=== PATIENT | female | born 2005 | race African-American/Black ===

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

== ENCOUNTER 2023-09-12 03:10 | Inpatient (IN) ==
--- NOTE | 2023-09-12 03:44 | DR.EXTPAIN ---
HPI Time seen Time Seen by Provider: 09/12/23 03:43 PCP Primary Care Physician: Dr. Laureano Rodarte Complaint/Symptoms Chief Complaint:: Patient ambulatory in er with complaints of DKA. Patient complains of vomiting, dizziness, SOB, and weakness since 10pm last night. Patient states at 2am her glucose was 360. COVID-19 Coronavirus risk:travel/contact w/high risk person: No Has patient experienced Coronavirus symptoms: No Nurses notes reviewed Nurses Notes Review: Yes Source History Provided: Patient Mode of arrival Mode of Arrival: Ambulatory Timing Onset of Chief Complaint: 09/12/23 PMH PMH Past Medical History: Yes Past Medical History: Diabetes, Dyslipidemia and Hypertension Past Surgical History: No Family History History of Family Medical Conditions: Yes Family Medical History: Diabetes Mellitus and Hypertension Social History Does patient currently use any type of tobacco product: No Have you used tobacco products in the last 12 months: No Type of Tobacco Use: None Does any household member use tobacco: No Alcohol Use: None Do you use any recreational Drugs:: No Lives With: Significant Other Lives Where: Home Travel Risk Coronavirus risk:travel/contact w/high risk person: No Has patient experienced Coronavirus symptoms: No Infectious screening Have you traveled outside the country in the last 6 months?: No Isolation: Standard PE Vital Signs Vitals: Vital Signs Temperature 97.4 F Pulse Rate 128 Pulse Rate 135 Pulse Rate 130 Pulse Rate 129 Pulse Rate 131 Pulse Rate 131 Pulse Rate 135 Pulse Rate 129 Pulse Rate 127 Pulse Rate 129 Pulse Rate 120 Pulse Rate 130 Pulse Rate 146 Pulse Rate 138 Pulse Rate 142 Pulse Rate 136 Respiratory Rate 30 Respiratory Rate 30 Respiratory Rate 32 Respiratory Rate 24 Blood Pressure 140/70 Blood Pressure 140/70 Blood Pressure 135/71 Blood Pressure 134/68 Blood Pressure 131/68 Blood Pressure 131/68 Blood Pressure 129/69 Blood Pressure 135/83 Blood Pressure 120/60 Blood Pressure 139/81 Blood Pressure 139/81 Blood Pressure 148/83 Blood Pressure 132/70 O2 Sat by Pulse Oximetry 100 O2 Sat by Pulse Oximetry 100 O2 Sat by Pulse Oximetry 100 O2 Sat by Pulse Oximetry 100 O2 Sat by Pulse Oximetry 100 O2 Sat by Pulse Oximetry 100 O2 Sat by Pulse Oximetry 100 O2 Sat by Pulse Oximetry 100 O2 Sat by Pulse Oximetry 99 O2 Sat by Pulse Oximetry 100 O2 Sat by Pulse Oximetry 100 O2 Sat by Pulse Oximetry 99 O2 Sat by Pulse Oximetry 99 O2 Sat by Pulse Oximetry 98 O2 Sat by Pulse Oximetry 98 O2 Sat by Pulse Oximetry 95 ROR Labs Reviewed 09/12/23 04:20 09/12/23 06:17 Laboratory: WBC 28.7 X10^3/uL (3.6-10.0) H 09/12/23 04:20 RBC 5.91 X10^6/uL (3.5-5.4) H 09/12/23 04:20 Hgb 16.2 g/dL (12.0-16.0) H 09/12/23 04:20 Hct 51.5 % (36.0-47.0) H 09/12/23 04:20 MCV 87.1 fL (80.0-100.0) 09/12/23 04:20 MCH 27.5 pg (27.0-34.0) 09/12/23 04:20 MCHC 31.5 g/dL (33.0-35.0) L 09/12/23 04:20 RDW 14.3 % (11.6-16.5) 09/12/23 04:20 Plt Count 484 X10^3/uL (150.0-450.0) H 09/12/23 04:20 Plt Count Comment Increased (ADEQUATE) A 09/12/23 04:20 MPV 9.0 fL (7.4-11.0) 09/12/23 04:20 Neut % (Auto) 88.3 % (42.0-75.0) H 09/12/23 04:20 Lymph % (Auto) 5.7 % (21.0-51.0) L 09/12/23 04:20 [place] % (Auto) 5.2 % (0.0-13.0) 09/12/23 04:20 Eos % (Auto) 0.0 % (0.9-2.9) L 09/12/23 04:20 Baso % (Auto) 0.8 % (0.2-1.0) 09/12/23 04:20 Neut # (Auto) 25.3 x10^3/uL (2.2-4.8) H 09/12/23 04:20 Lymph # (Auto) 1.6 X10^3/uL (1.3-2.9) 09/12/23 04:20 [place] # (Auto) 1.5 x10^3/uL (0.3-0.8) H 09/12/23 04:20 Eos # (Auto) 0.0 x10^3/uL (0.0-0.2) 09/12/23 04:20 Baso # (Auto) 0.2 X10^3/uL (0.0-0.1) H 09/12/23 04:20 Absolute Nucleated RBC 0.0 /100WBC 09/12/23 04:20 Total Counted 100 09/12/23 04:20 Neutrophils % (Manual) 79 % (39-76) H 09/12/23 04:20 Band Neutrophils % 5 % (0-10) 09/12/23 04:20 Lymphocytes % (Manual) 9 % (13-43) L 09/12/23 04:20 Monocytes % (Manual) 5 % (4-9) 09/12/23 04:20 Metamyelocytes % 2 09/12/23 04:20 Plt Morphology Comment Normal (NORMAL) 09/12/23 04:20 RBC Morphology Normal (NORMAL) 09/12/23 04:20 Sample Site Rrad 09/12/23 07:11 ABG pH 6.960 (7.35-7.45) L* 09/12/23 07:11 ABG pCO2 8.0 mmHg (35.0-45.0) L* 09/12/23 07:11 ABG pO2 127.0 mmHg (80.0-100.0) H 09/12/23 07:11 ABG HCO3 < 3.0 mmol/L (22-26) L* 09/12/23 07:11 ABG O2 Saturation Not Reportable 09/12/23 07:11 ABG Base Excess Not Reportable 09/12/23 07:11 Salas Test Pos 09/12/23 07:11 A-a Gradient 13.0 mmHg 09/12/23 07:11 FiO2 21.0 09/12/23 07:11 Blood Gas Comments Pt nasim well elj cdn 09/12/23 07:11 Sodium 142 mmol/L (136-145) 09/12/23 06:17 Corrected Sodium 150 mmol/L (136-145) H 09/12/23 06:17 Potassium 4.9 mmol/L (3.5-5.1) 09/12/23 06:17 Chloride 104 mmol/L (98-107) 09/12/23 06:17 Carbon Dioxide 6.7 mmol/L (21-32) L* 09/12/23 06:17 BUN 16 mg/dL (7-18) 09/12/23 06:17 Creatinine 1.29 mg/dL (0.55-1.02) H 09/12/23 06:17 Est GFR (MDRD) Af Amer > 60 (>60) 09/12/23 06:17 Est GFR (MDRD) Non-Af 56 (>60) L 09/12/23 06:17 Glucose 451 mg/dL (65-99) H 09/12/23 06:17 Calcium 8.8 mg/dL (8.5-10.1) 09/12/23 06:17 Corrected Calcium TNP 09/12/23 04:20 Magnesium 2.3 mg/dL (2.0-2.9) 09/12/23 04:20 Total Bilirubin 0.50 mg/dL (0.2-1.0) 09/12/23 04:20 AST < 6 Units/L (15-37) L 09/12/23 04:20 ALT 27 Units/L (12-78) 09/12/23 04:20 Alkaline Phosphatase 186 Units/L (46-116) H 09/12/23 04:20 Total Protein 9.9 g/dL (6.4-8.2) H 09/12/23 04:20 Albumin 4.4 g/dL (3.4-5.0) 09/12/23 04:20 Globulin 5.5 g/dL (2.5-4.5) H 09/12/23 04:20 Albumin/Globulin Ratio 0.8 Ratio (1.1-2.1) L 09/12/23 04:20 Specimen Type Clean catch urine 09/12/23 03:48 Urine Color Pale yellow (YELLOW) 09/12/23 03:48 Urine Appearance Clear (CLEAR) 09/12/23 03:48 Urine pH 5.0 (5.0 - 8.0) 09/12/23 03:48 Ur Specific [employer] [place] 1.025 (1.000-1.030) 09/12/23 03:48 Urine Protein 3+ (NEGATIVE) 09/12/23 03:48 Urine Glucose (UA) 4+ (NEGATIVE) 09/12/23 03:48 Urine Ketones 4+ (NEGATIVE) 09/12/23 03:48 Urine Blood 4+ (NEGATIVE) 09/12/23 03:48 Urine Nitrite Negative (NEGATIVE) 09/12/23 03:48 Urine Bilirubin Negative (NEGATIVE) 09/12/23 03:48 Urine Urobilinogen Normal (NORMAL) 09/12/23 03:48 Ur Leukocyte Esterase Negative (NEGATIVE) 09/12/23 03:48 Urine RBC 0-2 /HPF (0-3) 09/12/23 03:48 Urine WBC 0-2 /HPF (0-5) 09/12/23 03:48 Ur Squamous Epith Cells Few /HPF (NEGATIVE) 09/12/23 03:48 Urine Bacteria Trace /HPF (NEGATIVE) 09/12/23 03:48 Hyaline Casts Few /LPF (NEGATIVE) 09/12/23 03:48 Urine Mucus Few /HPF (NEGATIVE) 09/12/23 03:48 Urine Yeast Few /HPF (NEGATIVE) 09/12/23 03:48 Ur Culture Indicated? No/not indicated 09/12/23 03:48 Acetone, Semi-Quant Moderate (NEGATIVE) H 09/12/23 04:20 Opioid Opioid Risk Tool Age (Jason box if 16-45): Yes History of Preadolescent Sexual Abuse: No Total: 1 Total Score Risk Category: Low Risk Copyright: Antoni HAGAN predicting aberrant behaviors Discharge Plan Discharge Plan Patient Disposition: 01 HOME, SELF-CARE Condition: Stable Prescriptions: No Action lisinopril 10 MG tablet 1 tab PO DAILY insulin lispro [Humalog U-100 Insulin] 100 UNITS/ML solution 10 unit SC PRN PRN Misc Home Med [Patient's Home Medication] 1 EA Ea Patient Comments: BASAGRAL INSULIN ibuprofen 600 MG tablet 600 mg PO TID PRN (Reason: Pain/Inflammation) Qty: 20 0RF naproxen [Naprosyn] 500 mg tablet 500 mg PO BID Qty: 14 0RF insulin glargine [Lantus U-100 Insulin] 100 unit/mL Solution 45 unit SUBCUT HS Health Concerns: Post Hospitalization: new medications and changes needed to prevent readmission or further decline. Pt educated and given instructions on all concerns. Plan of Treatment: Continue with present treatment and follow up plan. Pt is to keep follow up appointment as instructed and take medications as ordered. Orders to Discharge Patient Discharge Orders: Transfer (Routine); Ordered 09/12/23 Ordered By: ISAIAS ANTHONY Follow ups/Referrals Follow ups/Referrals: NFD,None [Primary Care Provider] - 3 days Instructions Stand Alone Forms: Post Hospital Follow Up Care
[2023-09-12 04:10] LABS: BILIRUBIN,URINE NEGATIVE (NEGATIVE); BLOOD/HEMOGLOBIN,URINE 4+ (NEGATIVE); GLUCOSE, URINE 4+ (NEGATIVE); KETONES,URINE 4+ (NEGATIVE); LEUKOCYTE ESTERASE ,URINE NEGATIVE (NEGATIVE); NITRITES,URINE NEGATIVE (NEGATIVE); PROTEIN,URINE 3+ (NEGATIVE); UROBILINOGEN,URINE NORMAL (NORMAL)
[2023-09-12 04:14] LABS: ABG HCO3 < 3.0 mmol/L (22-26)
[2023-09-12 04:19] LABS: APPEARANCE,URINE CLEAR (CLEAR); COLOR,URINE PALE YELLOW (YELLOW)
[2023-09-12 04:20] LABS: BACTERIA,URINE TRACE /HPF (NEGATIVE); HYALINE CASTS, URINE FEW /LPF (NEGATIVE); RBC,URINE 0-2 /HPF (0-3); SQUAMOUS EPITHELIAL CELL,UR FEW /HPF (NEGATIVE); YEAST,URINE FEW /HPF (NEGATIVE)
[2023-09-12] MEDS: NS 1,000 ML IV 1,000 ML IV ONE ×4 (04:25→13:49)
[2023-09-12 04:27] LABS: BASOPHILS # (AUTO) 0.2 X10^3/uL (0.0-0.1); BASOPHILS % (AUTO) 0.8 % (0.2-1.0); HEMATOCRIT 51.5 % (36.0-47.0); HEMOGLOBIN 16.2 g/dL (12.0-16.0); LYMPHOCYTES # (AUTO) 1.6 X10^3/uL (1.3-2.9); LYMPHOCYTES % (AUTO) 5.7 % (21.0-51.0); MEAN CORPUSCULAR HEMOGLOBIN 27.5 pg (27.0-34.0); MEAN CORPUSCULAR HGB CONC 31.5 g/dL (33.0-35.0); MEAN CORPUSCULAR VOLUME 87.1 fL (80.0-100.0); MONOCYTES # (AUTO) 1.5 x10^3/uL (0.3-0.8); MONOCYTES % (AUTO) 5.2 % (0.0-13.0); NEUTROPHILS # (AUTO) 25.3 x10^3/uL (2.2-4.8); NEUTROPHILS % (AUTO) 88.3 % (42.0-75.0); PLATELET COUNT 484 X10^3/uL (150.0-450.0); RED BLOOD COUNT 5.91 X10^6/uL (3.5-5.4); RED CELL DISTRIBUTION WIDTH 14.3 % (11.6-16.5); WHITE BLOOD COUNT 28.7 X10^3/uL (3.6-10.0)
[2023-09-12 04:35] LABS: SERUM ACETONE MODERATE (NEGATIVE)
[2023-09-12] MEDS: ZOFRAN INJ 4 MG VIAL IVP ONE (04:37)
[2023-09-12 04:38] LABS: ALANINE AMINOTRANSFERASE 27 Units/L (12-78); ALBUMIN 4.4 g/dL (3.4-5.0); ALKALINE PHOSPHATASE 186 Units/L (46-116); ASPARTATE AMINO TRANSFERASE < 6 Units/L (15-37); BLOOD UREA NITROGEN 15 mg/dL (7-18); CALCIUM 9.7 mg/dL (8.5-10.1); CHLORIDE 98 mmol/L (98-107); COR NA(FOR HYPERGLY) 146 mmol/L (136-145); CREATININE 1.66 mg/dL (0.55-1.02); GLUCOSE 488 mg/dL (65-99); POTASSIUM 4.7 mmol/L (3.5-5.1); SODIUM 137 mmol/L (136-145); TOTAL PROTEIN 9.9 g/dL (6.4-8.2); eGFR NON BLACK RACES 42 (>60)
[2023-09-12] MEDS: DEMEROL INJ IVP ONE (04:39)
[2023-09-12] MEDS: SODIUM BICARBONATE 8.4% INJ ADULT IVP ONE ×4 (04:39→08:02)
[2023-09-12 04:44] LABS: BAND NEUTROPHILS % 5 % (0-10); METAMYELOCYTES % 2; PLATELET MORPHOLOGY COMMENT NORMAL (NORMAL)
[2023-09-12 04:46] LABS: CARBON DIOXIDE < 5.0 mmol/L (21-32)
[2023-09-12 06:33] LABS: BLOOD UREA NITROGEN 16 mg/dL (7-18); CALCIUM 8.8 mg/dL (8.5-10.1); CHLORIDE 104 mmol/L (98-107); COR NA(FOR HYPERGLY) 150 mmol/L (136-145); CREATININE 1.29 mg/dL (0.55-1.02); GLUCOSE 451 mg/dL (65-99); POTASSIUM 4.9 mmol/L (3.5-5.1); SODIUM 142 mmol/L (136-145); eGFR NON BLACK RACES 56 (>60)
[2023-09-12 06:36] LABS: CARBON DIOXIDE 6.7 mmol/L (21-32)
--- NOTE | 2023-09-12 06:41 | RAD ---
EXAM:CHEST, 1 VIEWHISTORY:Shortness of breathCOMPARISON:07/25/2020FINDINGS:The trachea is midline. The cardiac silhouette is unremarkable . The lungs are clear without focal infiltrate or effusion. The bony thorax is unremarkable.IMPRESSION:No acute cardiopulmonary disease.THIS IS AN ELECTRONICALLY VERIFIED FINAL REPORT09/12/2023 6:38 AM - Electronically signed by Km Pickett MD
[2023-09-12 07:16] LABS: ABG HCO3 < 3.0 mmol/L (22-26)
[2023-09-12 07:17] LABS: ABG ALLEN TEST POS
[2023-09-12] MEDS: NS 1,000 ML IV 1,000 ML with MAGNESIUM SULFATE 50% INJ VIAL 1 G, MVI INJ (ADULT) 10 ML IV SCH (07:36)
[2023-09-12] MEDS ORDERED: SODIUM BICARBONATE 8.4% INJ ADULT 100 ML in NS 1/2 1,000 ML IV 1,000 ML IV ONE (07:41)
[2023-09-12] MEDS: SODIUM BICARBONATE 8.4% INJ ADULT 100 ML in NS 1/2 1,000 ML IV 1,000 ML IV ONE (07:52)
[2023-09-12] MEDS: MYXREDLIN 100 UNIT/100 ML BAG 100 UNIT/100 ML PLAST..BAG IV PRN (08:09)
--- NOTE | 2023-09-12 08:30 | DR.H&P ---
H&P History & Physical for Day of: H&P Date: 09/12/23 Chief Complaint Chief Complaint: "DKA", ELEVATED BLOOD SUGAR Allergies Allergies Allergy/AdvReac Type Severity Reaction Status Date / Time No Known Drug Allergies Allergy Verified 09/12/23 03:23 History of Present Illness History of Present Illness: PT IS 18BF, ER ADMISSION AFTER PRESENTING WITH CO BEING IN DKA. 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 PT REPORTS LAST SEEING PCP IN JANUARY. PT DENIES ANY RECENT S/S VIRAL ILLNESS. PT REPORTS LMP 2 WEEKS AGO. PT ADMITTED FOR TREATMENT OF DKA Past Medical History Past Medical History: Diabetes, Dyslipidemia and Hypertension Family History Family Medical History: Diabetes Mellitus and Hypertension Social History Does patient currently use any type of tobacco product: No Have you used tobacco products in the last 12 months: No Type of Tobacco Use: None Does any household member use tobacco: No Alcohol Use: None Medications Home Medications: Home Medications Medication Instructions Recorded Confirmed Type Misc Home Med [Patient's Home 01/05/17 History Medication] insulin lispro 100 unit/mL 10 unit SC PRN PRN 01/05/17 09/12/23 History subcutaneous solution (Humalog U-100 Insulin) lisinopril 10 mg tablet 1 tab PO DAILY 01/05/17 01/05/17 History insulin glargine 100 unit/mL 45 unit subcut HS 09/12/23 09/12/23 History subcutaneous solution (Lantus U-100 Insulin) Labs 09/12/23 04:20 09/12/23 06:17 Labs: Laboratory WBC 28.7 X10^3/uL (3.6-10.0) H 09/12/23 04:20 RBC 5.91 X10^6/uL (3.5-5.4) H 09/12/23 04:20 Hgb 16.2 g/dL (12.0-16.0) H 09/12/23 04:20 Hct 51.5 % (36.0-47.0) H 09/12/23 04:20 MCV 87.1 fL (80.0-100.0) 09/12/23 04:20 MCH 27.5 pg (27.0-34.0) 09/12/23 04:20 MCHC 31.5 g/dL (33.0-35.0) L 09/12/23 04:20 RDW 14.3 % (11.6-16.5) 09/12/23 04:20 Plt Count 484 X10^3/uL (150.0-450.0) H 09/12/23 04:20 Plt Count Comment Increased (ADEQUATE) A 09/12/23 04:20 MPV 9.0 fL (7.4-11.0) 09/12/23 04:20 Neut % (Auto) 88.3 % (42.0-75.0) H 09/12/23 04:20 Lymph % (Auto) 5.7 % (21.0-51.0) L 09/12/23 04:20 [place] % (Auto) 5.2 % (0.0-13.0) 09/12/23 04:20 Eos % (Auto) 0.0 % (0.9-2.9) L 09/12/23 04:20 Baso % (Auto) 0.8 % (0.2-1.0) 09/12/23 04:20 Neut # (Auto) 25.3 x10^3/uL (2.2-4.8) H 09/12/23 04:20 Lymph # (Auto) 1.6 X10^3/uL (1.3-2.9) 09/12/23 04:20 [place] # (Auto) 1.5 x10^3/uL (0.3-0.8) H 09/12/23 04:20 Eos # (Auto) 0.0 x10^3/uL (0.0-0.2) 09/12/23 04:20 Baso # (Auto) 0.2 X10^3/uL (0.0-0.1) H 09/12/23 04:20 Absolute Nucleated RBC 0.0 /100WBC 09/12/23 04:20 Total Counted 100 09/12/23 04:20 Neutrophils % (Manual) 79 % (39-76) H 09/12/23 04:20 Band Neutrophils % 5 % (0-10) 09/12/23 04:20 Lymphocytes % (Manual) 9 % (13-43) L 09/12/23 04:20 Monocytes % (Manual) 5 % (4-9) 09/12/23 04:20 Metamyelocytes % 2 09/12/23 04:20 Plt Morphology Comment Normal (NORMAL) 09/12/23 04:20 RBC Morphology Normal (NORMAL) 09/12/23 04:20 Sample Site Rrad 09/12/23 07:11 ABG pH 6.960 (7.35-7.45) L* 09/12/23 07:11 ABG pCO2 8.0 mmHg (35.0-45.0) L* 09/12/23 07:11 ABG pO2 127.0 mmHg (80.0-100.0) H 09/12/23 07:11 ABG HCO3 < 3.0 mmol/L (22-26) L* 09/12/23 07:11 ABG O2 Saturation Not Reportable 09/12/23 07:11 ABG Base Excess Not Reportable 09/12/23 07:11 Salas Test Pos 09/12/23 07:11 A-a Gradient 13.0 mmHg 09/12/23 07:11 FiO2 21.0 09/12/23 07:11 Blood Gas Comments Pt nasim well elj cdn 09/12/23 07:11 Sodium 142 mmol/L (136-145) 09/12/23 06:17 Corrected Sodium 150 mmol/L (136-145) H 09/12/23 06:17 Potassium 4.9 mmol/L (3.5-5.1) 09/12/23 06:17 Chloride 104 mmol/L (98-107) 09/12/23 06:17 Carbon Dioxide 6.7 mmol/L (21-32) L* 09/12/23 06:17 BUN 16 mg/dL (7-18) 09/12/23 06:17 Creatinine 1.29 mg/dL (0.55-1.02) H 09/12/23 06:17 Est GFR (MDRD) Af Amer > 60 (>60) 09/12/23 06:17 Est GFR (MDRD) Non-Af 56 (>60) L 09/12/23 06:17 Glucose 451 mg/dL (65-99) H 09/12/23 06:17 POC Glucose (mg/dL) 411 mg/dL (65-99) H 09/12/23 08:01 Calcium 8.8 mg/dL (8.5-10.1) 09/12/23 06:17 Corrected Calcium TNP 09/12/23 04:20 Magnesium 2.3 mg/dL (2.0-2.9) 09/12/23 04:20 Total Bilirubin 0.50 mg/dL (0.2-1.0) 09/12/23 04:20 AST < 6 Units/L (15-37) L 09/12/23 04:20 ALT 27 Units/L (12-78) 09/12/23 04:20 Alkaline Phosphatase 186 Units/L (46-116) H 09/12/23 04:20 Total Protein 9.9 g/dL (6.4-8.2) H 09/12/23 04:20 Albumin 4.4 g/dL (3.4-5.0) 09/12/23 04:20 Globulin 5.5 g/dL (2.5-4.5) H 09/12/23 04:20 Albumin/Globulin Ratio 0.8 Ratio (1.1-2.1) L 09/12/23 04:20 Specimen Type Clean catch urine 09/12/23 03:48 Urine Color Pale yellow (YELLOW) 09/12/23 03:48 Urine Appearance Clear (CLEAR) 09/12/23 03:48 Urine pH 5.0 (5.0 - 8.0) 09/12/23 03:48 Ur Specific [place] 1.025 (1.000-1.030) 09/12/23 03:48 Urine Protein 3+ (NEGATIVE) 09/12/23 03:48 Urine Glucose (UA) 4+ (NEGATIVE) 09/12/23 03:48 Urine Ketones 4+ (NEGATIVE) 09/12/23 03:48 Urine Blood 4+ (NEGATIVE) 09/12/23 03:48 Urine Nitrite Negative (NEGATIVE) 09/12/23 03:48 Urine Bilirubin Negative (NEGATIVE) 09/12/23 03:48 Urine Urobilinogen Normal (NORMAL) 09/12/23 03:48 Ur Leukocyte Esterase Negative (NEGATIVE) 09/12/23 03:48 Urine RBC 0-2 /HPF (0-3) 09/12/23 03:48 Urine WBC 0-2 /HPF (0-5) 09/12/23 03:48 Ur Squamous Epith Cells Few /HPF (NEGATIVE) 09/12/23 03:48 Urine Bacteria Trace /HPF (NEGATIVE) 09/12/23 03:48 Hyaline Casts Few /LPF (NEGATIVE) 09/12/23 03:48 Urine Mucus Few /HPF (NEGATIVE) 09/12/23 03:48 Urine Yeast Few /HPF (NEGATIVE) 09/12/23 03:48 Ur Culture Indicated? No/not indicated 09/12/23 03:48 Acetone, Semi-Quant Moderate (NEGATIVE) H 09/12/23 04:20 Review of Systems Constitutional: Malaise Eyes: No Symptoms Reported ENT: No Symptoms Reported Respiratory: Shortness of Breath Cardiovascular: Palpitations Gastrointestinal: Nausea Genitourinary: No Symptoms Reported Musculoskeletal: No Symptoms Reported Skin: No Symptoms Reported Neurological: Weakness Physical Exam Vital Signs: Vital Signs Temperature 97.4 F Pulse Rate 128 Pulse Rate 135 Pulse Rate 130 Pulse Rate 129 Pulse Rate 131 Pulse Rate 131 Pulse Rate 135 Pulse Rate 129 Pulse Rate 127 Pulse Rate 129 Pulse Rate 120 Pulse Rate 130 Pulse Rate 146 Pulse Rate 138 Pulse Rate 142 Pulse Rate 136 Respiratory Rate 30 Respiratory Rate 30 Respiratory Rate 32 Respiratory Rate 24 Blood Pressure 140/70 Blood Pressure 140/70 Blood Pressure 135/71 Blood Pressure 134/68 Blood Pressure 131/68 Blood Pressure 131/68 Blood Pressure 129/69 Blood Pressure 135/83 Blood Pressure 120/60 Blood Pressure 139/81 Blood Pressure 139/81 Blood Pressure 148/83 Blood Pressure 132/70 O2 Sat by Pulse Oximetry 100 O2 Sat by Pulse Oximetry 100 O2 Sat by Pulse Oximetry 100 O2 Sat by Pulse Oximetry 100 O2 Sat by Pulse Oximetry 100 O2 Sat by Pulse Oximetry 100 O2 Sat by Pulse Oximetry 100 O2 Sat by Pulse Oximetry 100 O2 Sat by Pulse Oximetry 99 O2 Sat by Pulse Oximetry 100 O2 Sat by Pulse Oximetry 100 O2 Sat by Pulse Oximetry 99 O2 Sat by Pulse Oximetry 99 O2 Sat by Pulse Oximetry 98 O2 Sat by Pulse Oximetry 98 O2 Sat by Pulse Oximetry 95 Oriented: Normal Eyes: Normal Ear: Normal Nose: Normal Throat: Normal Respiratory: RLL Diminished and LLL Diminished Cardiovascular: Tachycardia Auscultation: Bowel Sounds: Normal Palpation: Normal Tenderness: Normal Skin: Decreased Turgur and Diaphoresis (MILD) Musculoskeletal: Normal Psychiatric: Anxiety Affect: Anxious Speech Pattern: Clear and Appropriate Assessment/Plan (1) DKA (diabetic ketoacidosis): Narrative Support Text: ADMIT, ICU AGGRESSIVE IV HYDRATION WITH I&OS, BS CONTROL AND INSULIN DRIP PER PROTOCL PRN SUPPLEMENTAL O2 BP AND CARDIAC MONITORING NPO, BMP Q 4 UNTIL CO2 >18 DAILY SERUM ACETONE, ABG ON ADMISSION Status: Acute
[2023-09-12 09:14] LABS: BLOOD UREA NITROGEN 15 mg/dL (7-18); CALCIUM 8.7 mg/dL (8.5-10.1); CHLORIDE 103 mmol/L (98-107); COR NA(FOR HYPERGLY) 148 mmol/L (136-145); CREATININE 1.23 mg/dL (0.55-1.02); GLUCOSE 396 mg/dL (65-99); POTASSIUM 4.3 mmol/L (3.5-5.1); SODIUM 141 mmol/L (136-145); eGFR NON BLACK RACES 59 (>60)
[2023-09-12 09:16] LABS: CARBON DIOXIDE 5.1 mmol/L (21-32)
[2023-09-12] MEDS ORDERED: MYXREDLIN 100 UNIT/100 ML BAG 100 UNIT/100 ML PLAST..BAG IV PRN (09:42)
[2023-09-12] MEDS: NS 1,000 ML IV 1,000 ML ONE ×2 (09:46→09:47)
[2023-09-12] MEDS: D5 NS 1,000 ML IV 1,000 ML IV SCH ×2 (10:27→15:22)
[2023-09-12] MEDS: ROCEPHIN VIAL 1 GRAM 1 G in NS 100 ML IV 100 ML IV SCH (10:29)
[2023-09-12 11:01] VITALS: BMI 24.3
[2023-09-12 13:17] LABS: BLOOD UREA NITROGEN 12 mg/dL (7-18); CALCIUM 8.6 mg/dL (8.5-10.1); CHLORIDE 103 mmol/L (98-107); COR NA(FOR HYPERGLY) 144 mmol/L (136-145); CREATININE 1.25 mg/dL (0.55-1.02); GLUCOSE 276 mg/dL (65-99); POTASSIUM 4.1 mmol/L (3.5-5.1); SODIUM 140 mmol/L (136-145); eGFR NON BLACK RACES 58 (>60)
[2023-09-12 13:35] LABS: CARBON DIOXIDE < 5.0 mmol/L (21-32)
[2023-09-12] MEDS ORDERED: NS 1,000 ML IV 1,000 ML ONE (13:37)
[2023-09-12] MEDS: NS 1,000 ML IV 1,000 ML IV SCH (14:47)
[2023-09-12] MEDS ORDERED: NORCO 5/325 MG TAB ONE (15:15)
--- NOTE | 2023-09-12 15:27 | PCM.PROG ---
Progress Note - Past Medical Family Social History Allergies: Allergies No Known Drug Allergies Allergy (Verified 09/12/23 03:23) - Vital Signs and I&O's Vital Signs: Vital Signs Temperature 98.3 F Temperature 98.4 F Pulse Rate 133 Pulse Rate 128 Pulse Rate 127 Pulse Rate 138 Pulse Rate 133 Pulse Rate 128 Pulse Rate 126 Pulse Rate 126 Pulse Rate 123 Pulse Rate 128 Pulse Rate 128 Respiratory Rate 32 Respiratory Rate 34 Respiratory Rate 25 Respiratory Rate 21 Respiratory Rate 22 Blood Pressure 129/61 Blood Pressure 134/68 Blood Pressure 114/73 Blood Pressure 137/71 Blood Pressure 138/78 Blood Pressure 139/70 O2 Sat by Pulse Oximetry 100 O2 Sat by Pulse Oximetry 100 O2 Sat by Pulse Oximetry 100 O2 Sat by Pulse Oximetry 100 O2 Sat by Pulse Oximetry 100 O2 Sat by Pulse Oximetry 100 O2 Sat by Pulse Oximetry 100 O2 Sat by Pulse Oximetry 100 O2 Sat by Pulse Oximetry 100 O2 Sat by Pulse Oximetry 100 O2 Sat by Pulse Oximetry 100 Intake and Output: Intake & Output 09/09/23 09/10/23 09/11/23 09/12/23 23:59 23:59 23:59 23:59 Intake Total 26.9 / 26.9 Balance 26.9 / 26.9 - Physical Exam Oriented: Normal Eyes: Normal Ear: Normal Nose: Normal Throat: Normal Cardiovascular: Tachycardia Auscultation: Bowel Sounds: Normal Tenderness: Normal Skin: Decreased [place], Diaphoresis (MILD) Musculoskeletal: Normal Psychiatric: Anxiety Affect: Anxious Speech Pattern: Clear, Appropriate - Laboratory and Diagnostics Result Diagrams: 09/12/23 04:20 09/12/23 13:03 Labs: Laboratory WBC 28.7 X10^3/uL (3.6-10.0) H 09/12/23 04:20 RBC 5.91 X10^6/uL (3.5-5.4) H 09/12/23 04:20 Hgb 16.2 g/dL (12.0-16.0) H 09/12/23 04:20 Hct 51.5 % (36.0-47.0) H 09/12/23 04:20 MCV 87.1 fL (80.0-100.0) 09/12/23 04:20 MCH 27.5 pg (27.0-34.0) 09/12/23 04:20 MCHC 31.5 g/dL (33.0-35.0) L 09/12/23 04:20 RDW 14.3 % (11.6-16.5) 09/12/23 04:20 Plt Count 484 X10^3/uL (150.0-450.0) H 09/12/23 04:20 Plt Count Comment Increased (ADEQUATE) A 09/12/23 04:20 MPV 9.0 fL (7.4-11.0) 09/12/23 04:20 Neut % (Auto) 88.3 % (42.0-75.0) H 09/12/23 04:20 Lymph % (Auto) 5.7 % (21.0-51.0) L 09/12/23 04:20 [place] % (Auto) 5.2 % (0.0-13.0) 09/12/23 04:20 Eos % (Auto) 0.0 % (0.9-2.9) L 09/12/23 04:20 Baso % (Auto) 0.8 % (0.2-1.0) 09/12/23 04:20 Neut # (Auto) 25.3 x10^3/uL (2.2-4.8) H 09/12/23 04:20 Lymph # (Auto) 1.6 X10^3/uL (1.3-2.9) 09/12/23 04:20 [place] # (Auto) 1.5 x10^3/uL (0.3-0.8) H 09/12/23 04:20 Eos # (Auto) 0.0 x10^3/uL (0.0-0.2) 09/12/23 04:20 Baso # (Auto) 0.2 X10^3/uL (0.0-0.1) H 09/12/23 04:20 Absolute Nucleated RBC 0.0 /100WBC 09/12/23 04:20 Total Counted 100 09/12/23 04:20 Neutrophils % (Manual) 79 % (39-76) H 09/12/23 04:20 Band Neutrophils % 5 % (0-10) 09/12/23 04:20 Lymphocytes % (Manual) 9 % (13-43) L 09/12/23 04:20 Monocytes % (Manual) 5 % (4-9) 09/12/23 04:20 Metamyelocytes % 2 09/12/23 04:20 Plt Morphology Comment Normal (NORMAL) 09/12/23 04:20 RBC Morphology Normal (NORMAL) 09/12/23 04:20 Sample Site Rrad 09/12/23 07:11 ABG pH 6.960 (7.35-7.45) L* 09/12/23 07:11 ABG pCO2 8.0 mmHg (35.0-45.0) L* 09/12/23 07:11 ABG pO2 127.0 mmHg (80.0-100.0) H 09/12/23 07:11 ABG HCO3 < 3.0 mmol/L (22-26) L* 09/12/23 07:11 ABG O2 Saturation Not Reportable 09/12/23 07:11 ABG Base Excess Not Reportable 09/12/23 07:11 [place] Test Pos 09/12/23 07:11 A-a Gradient 13.0 mmHg 09/12/23 07:11 FiO2 21.0 09/12/23 07:11 Blood Gas Comments Pt nasim well elj cdn 09/12/23 07:11 Sodium 140 mmol/L (136-145) 09/12/23 13:03 Corrected Sodium 144 mmol/L (136-145) 09/12/23 13:03 Potassium 4.1 mmol/L (3.5-5.1) 09/12/23 13:03 Chloride 103 mmol/L (98-107) 09/12/23 13:03 Carbon Dioxide < 5.0 mmol/L (21-32) L* 09/12/23 13:03 BUN 12 mg/dL (7-18) 09/12/23 13:03 Creatinine 1.25 mg/dL (0.55-1.02) H 09/12/23 13:03 Est GFR (MDRD) Af Amer > 60 (>60) 09/12/23 13:03 Est GFR (MDRD) Non-Af 58 (>60) L 09/12/23 13:03 Glucose 276 mg/dL (65-99) H 09/12/23 13:03 POC Glucose (mg/dL) 157 mg/dL (65-99) H 09/12/23 15:20 Lactic Acid 2.7 mmol/L (0.4-2.0) H 09/12/23 13:03 Calcium 8.6 mg/dL (8.5-10.1) 09/12/23 13:03 Corrected Calcium TNP 09/12/23 04:20 Magnesium 2.3 mg/dL (2.0-2.9) 09/12/23 04:20 Total Bilirubin 0.50 mg/dL (0.2-1.0) 09/12/23 04:20 AST < 6 Units/L (15-37) L 09/12/23 04:20 ALT 27 Units/L (12-78) 09/12/23 04:20 Alkaline Phosphatase 186 Units/L (46-116) H 09/12/23 04:20 Total Protein 9.9 g/dL (6.4-8.2) H 09/12/23 04:20 Albumin 4.4 g/dL (3.4-5.0) 09/12/23 04:20 Globulin 5.5 g/dL (2.5-4.5) H 09/12/23 04:20 Albumin/Globulin Ratio 0.8 Ratio (1.1-2.1) L 09/12/23 04:20 Specimen Type Clean catch urine 09/12/23 03:48 Urine Color Pale yellow (YELLOW) 09/12/23 03:48 Urine Appearance Clear (CLEAR) 09/12/23 03:48 Urine pH 5.0 (5.0 - 8.0) 09/12/23 03:48 Ur Specific [place] 1.025 (1.000-1.030) 09/12/23 03:48 Urine Protein 3+ (NEGATIVE) 09/12/23 03:48 Urine Glucose (UA) 4+ (NEGATIVE) 09/12/23 03:48 Urine Ketones 4+ (NEGATIVE) 09/12/23 03:48 Urine Blood 4+ (NEGATIVE) 09/12/23 03:48 Urine Nitrite Negative (NEGATIVE) 09/12/23 03:48 Urine Bilirubin Negative (NEGATIVE) 09/12/23 03:48 Urine Urobilinogen Normal (NORMAL) 09/12/23 03:48 Ur Leukocyte Esterase Negative (NEGATIVE) 09/12/23 03:48 Urine RBC 0-2 /HPF (0-3) 09/12/23 03:48 Urine WBC 0-2 /HPF (0-5) 09/12/23 03:48 Ur Squamous Epith Cells Few /HPF (NEGATIVE) 09/12/23 03:48 Urine Bacteria Trace /HPF (NEGATIVE) 09/12/23 03:48 Hyaline Casts Few /LPF (NEGATIVE) 09/12/23 03:48 Urine Mucus Few /HPF (NEGATIVE) 09/12/23 03:48 Urine Yeast Few /HPF (NEGATIVE) 09/12/23 03:48 Ur Culture Indicated? No/not indicated 09/12/23 03:48 Acetone, Semi-Quant Moderate (NEGATIVE) H 09/12/23 04:20 Procedures (ALL) - Central Line Placement PCM.CLCO: written consent Time out performed: Yes Patient placed pm monitor/pulse ox: Yes MD prep: mask, gown, gloves, other (MSBT) Centrial line prep: chlorhexidine scrub Local anesthsia used: lidocane 1% Ultrasound used for placement: Yes (good visual) Central line lumen ininserted: double Post procedure: good blood return, all ports aspirated, flushed,capped, sterile dressing applied (biopatch) Post procedure xray: tip oc catheter in good position, no pneumothorax seen Patient tolerated procedure: Yes (x1 attempt) Complications: none
[2023-09-12] MEDS: NORCO 5/325 MG TAB PO PRN (15:30)
--- NOTE | 2023-09-12 15:35 | RAD ---
EXAM: CHEST, 1 VIEW HISTORY: PICC LINE PLACEMENT ; COMPARISON: 09/12/2023 FINDINGS: The cardiomediastinal silhouette is stable. Right PICC placement with tip overlying the SVC. Hypoventilatory exam without acute airspace disease. No pneumothorax or effusion. No acute osseous abnormality. IMPRESSION: Expected positioning of right PICC with tip overlying the SVC. THIS IS AN ELECTRONICALLY VERIFIED FINAL REPORT 09/12/2023 3:32 PM - Electronically signed by Anurag Hale MD
[2023-09-12 17:29] LABS: BLOOD UREA NITROGEN 9 mg/dL (7-18); CALCIUM 8.1 mg/dL (8.5-10.1); CHLORIDE 104 mmol/L (98-107); COR NA(FOR HYPERGLY) 141 mmol/L (136-145); CREATININE 1.14 mg/dL (0.55-1.02); GLUCOSE 212 mg/dL (65-99); POTASSIUM 4.1 mmol/L (3.5-5.1); SODIUM 138 mmol/L (136-145); eGFR NON BLACK RACES > 60 (>60)
[2023-09-12 17:33] LABS: CARBON DIOXIDE 8.6 mmol/L (21-32)
--- NOTE | 2023-09-12 17:33 | EKG ---
Test Reason : chest pressure Blood Pressure : */* mmHG Vent. Rate : 134 BPM Atrial Rate : 134 BPM P-R Int : 124 ms QRS Dur : 70 ms QT Int : 336 ms P-R-T Axes : 72 55 45 degrees QTc Int : 501 ms Sinus tachycardia Otherwise normal ECG No previous ECGs available Confirmed by Ac Patino MD ([id number]) on 09/13/2023 6:01:05 AM Referred By: Confirmed By: Ac Patino MD
[2023-09-12] MEDS ORDERED: PROTONIX INJ 40 MG VIAL ONE (18:29)
[2023-09-12] MEDS: LEVSIN/MAALOX/LIDOC VISC PO PRN (18:32)
[2023-09-12] MEDS: PROTONIX INJ 40 MG VIAL IVP SCH (18:33)
[2023-09-12 21:06] LABS: BLOOD UREA NITROGEN 6 mg/dL (7-18); CALCIUM 7.9 mg/dL (8.5-10.1); CHLORIDE 103 mmol/L (98-107); COR NA(FOR HYPERGLY) 138 mmol/L (136-145); CREATININE 1.09 mg/dL (0.55-1.02); GLUCOSE 251 mg/dL (65-99); POTASSIUM 3.7 mmol/L (3.5-5.1); SODIUM 134 mmol/L (136-145); eGFR NON BLACK RACES > 60 (>60)
[2023-09-12 21:18] LABS: CARBON DIOXIDE < 5.0 mmol/L (21-32)
[2023-09-12] MEDS ORDERED: VALIUM INJ IM PRN (21:38)
[2023-09-13 01:35] LABS: BLOOD UREA NITROGEN 5 mg/dL (7-18); CALCIUM 8.3 mg/dL (8.5-10.1); CHLORIDE 107 mmol/L (98-107); COR NA(FOR HYPERGLY) 138 mmol/L (136-145); CREATININE 1.03 mg/dL (0.55-1.02); GLUCOSE 169 mg/dL (65-99); POTASSIUM 3.9 mmol/L (3.5-5.1); SODIUM 136 mmol/L (136-145); eGFR NON BLACK RACES > 60 (>60)
[2023-09-13 01:37] LABS: CARBON DIOXIDE 5.6 mmol/L (21-32)
[2023-09-13 05:42] LABS: BASOPHILS # (AUTO) 0.2 X10^3/uL (0.0-0.1); BASOPHILS % (AUTO) 1.2 % (0.2-1.0); HEMATOCRIT 43.7 % (36.0-47.0); HEMOGLOBIN 14.2 g/dL (12.0-16.0); MEAN CORPUSCULAR HEMOGLOBIN 27.1 pg (27.0-34.0); MEAN CORPUSCULAR HGB CONC 32.4 g/dL (33.0-35.0); MEAN CORPUSCULAR VOLUME 83.5 fL (80.0-100.0); MEAN PLATELET VOLUME 8.7 fL (7.4-11.0); MONOCYTES # (AUTO) 1.4 x10^3/uL (0.3-0.8); MONOCYTES % (AUTO) 8.4 % (0.0-13.0); NEUTROPHILS # (AUTO) 13.7 x10^3/uL (2.2-4.8); NEUTROPHILS % (AUTO) 84.4 % (42.0-75.0); PLATELET COUNT 285 X10^3/uL (150.0-450.0); RED BLOOD COUNT 5.23 X10^6/uL (3.5-5.4); RED CELL DISTRIBUTION WIDTH 14.1 % (11.6-16.5); WHITE BLOOD COUNT 16.3 X10^3/uL (3.6-10.0)
[2023-09-13 06:02] LABS: ALANINE AMINOTRANSFERASE 22 Units/L (12-78); ALBUMIN 3.3 g/dL (3.4-5.0); ALKALINE PHOSPHATASE 112 Units/L (46-116); ASPARTATE AMINO TRANSFERASE 11 Units/L (15-37); BLOOD UREA NITROGEN 4 mg/dL (7-18); CALCIUM 8.8 mg/dL (8.5-10.1); CHLORIDE 108 mmol/L (98-107); COR CA(FOR HYPOALB) 9.4 mg/dL (8.5-10.1); COR NA(FOR HYPERGLY) 140 mmol/L (136-145); CREATININE 1.14 mg/dL (0.55-1.02); GLUCOSE 166 mg/dL (65-99); MAGNESIUM 1.9 mg/dL (2.0-2.9); POTASSIUM 3.8 mmol/L (3.5-5.1); SODIUM 138 mmol/L (136-145); TOTAL PROTEIN 7.9 g/dL (6.4-8.2); eGFR NON BLACK RACES > 60 (>60)
[2023-09-13 06:05] LABS: CARBON DIOXIDE 8.3 mmol/L (21-32)
[2023-09-13 06:06] LABS: SERUM ACETONE SMALL (NEGATIVE)
[2023-09-13 08:46] LABS: ABG BASE EXCESS -18.3 mmol/L (-2.0-2.0)
[2023-09-13 08:48] LABS: ABG ALLEN TEST POS
[2023-09-13] MEDS ORDERED: PROTONIX INJ 40 MG VIAL IVP SCH (09:00)
[2023-09-13] MEDS: MAGNESIUM SULFATE 1 GRAM/100 mL PREMIX 1 G/100 ML BAG IV SCH (09:40)
[2023-09-13] MEDS: NovoLIN N or HumuLIN N SC ONE (09:41)
[2023-09-13 10:02] LABS: BLOOD UREA NITROGEN 4 mg/dL (7-18); CALCIUM 8.6 mg/dL (8.5-10.1); CHLORIDE 111 mmol/L (98-107); COR NA(FOR HYPERGLY) 141 mmol/L (136-145); CREATININE 1.17 mg/dL (0.55-1.02); GLUCOSE 190 mg/dL (65-99); POTASSIUM 3.4 mmol/L (3.5-5.1); SODIUM 139 mmol/L (136-145); eGFR NON BLACK RACES > 60 (>60)
[2023-09-13 10:09] LABS: CARBON DIOXIDE 12.5 mmol/L (21-32)
[2023-09-13] MEDS ORDERED: CONSULT PHARMACY - POTASSIUM & MAGNESIUM XX SCH (11:00)
[2023-09-13] MEDS: K-DUR TAB 20 MEQ PO SCH (11:56)
[2023-09-13 14:10] LABS: BLOOD UREA NITROGEN 3 mg/dL (7-18); CALCIUM 8.3 mg/dL (8.5-10.1); CHLORIDE 108 mmol/L (98-107); COR NA(FOR HYPERGLY) 137 mmol/L (136-145); CREATININE 1.12 mg/dL (0.55-1.02); GLUCOSE 195 mg/dL (65-99); POTASSIUM 3.1 mmol/L (3.5-5.1); SODIUM 135 mmol/L (136-145); eGFR NON BLACK RACES > 60 (>60)
[2023-09-13 14:13] LABS: CARBON DIOXIDE 10.3 mmol/L (21-32)
[2023-09-13 15:43] LABS: ABG BASE EXCESS -15.7 mmol/L (-2.0-2.0)
[2023-09-13 15:44] LABS: ABG ALLEN TEST POS; ABG HCO3 8.9 mmol/L (22-26)
[2023-09-13] MEDS ORDERED: D5 NS 1,000 ML IV 1,000 ML IV SCH (17:00)
[2023-09-13 18:08] LABS: BLOOD UREA NITROGEN 4 mg/dL (7-18); CALCIUM 8.6 mg/dL (8.5-10.1); CHLORIDE 108 mmol/L (98-107); COR NA(FOR HYPERGLY) 139 mmol/L (136-145); CREATININE 1.15 mg/dL (0.55-1.02); GLUCOSE 185 mg/dL (65-99); POTASSIUM 3.2 mmol/L (3.5-5.1); SODIUM 137 mmol/L (136-145); eGFR NON BLACK RACES > 60 (>60)
[2023-09-13 18:14] LABS: CARBON DIOXIDE 11.9 mmol/L (21-32)
[2023-09-13] MEDS ORDERED: SNACK - Diabetic Appropriate PO SCH ×2 (20:00)
[2023-09-13] MEDS: LANTUS SC SCH (21:16)
[2023-09-13 22:11] LABS: BLOOD UREA NITROGEN 3 mg/dL (7-18); CALCIUM 7.7 mg/dL (8.5-10.1); CHLORIDE 105 mmol/L (98-107); COR NA(FOR HYPERGLY) 139 mmol/L (136-145); CREATININE 1.02 mg/dL (0.55-1.02); GLUCOSE 207 mg/dL (65-99); POTASSIUM 3.1 mmol/L (3.5-5.1); SODIUM 136 mmol/L (136-145); eGFR NON BLACK RACES > 60 (>60)
[2023-09-13 22:13] LABS: CARBON DIOXIDE 14.7 mmol/L (21-32)
[2023-09-14 02:31] LABS: BLOOD UREA NITROGEN 2 mg/dL (7-18); CALCIUM 8.2 mg/dL (8.5-10.1); CARBON DIOXIDE 17.4 mmol/L (21-32); CHLORIDE 109 mmol/L (98-107); COR NA(FOR HYPERGLY) 141 mmol/L (136-145); CREATININE 0.87 mg/dL (0.55-1.02); GLUCOSE 155 mg/dL (65-99); SODIUM 140 mmol/L (136-145); eGFR NON BLACK RACES > 60 (>60)
[2023-09-14 02:37] LABS: POTASSIUM 2.6 mmol/L (3.5-5.1)
[2023-09-14] MEDS ORDERED: CONSULT PHARMACY - POTASSIUM & MAGNESIUM XX SCH ×2 (03:00→07:00)
[2023-09-14] MEDS: K-DUR TAB 20 MEQ PO ONE ×4 (03:36→10:08)
[2023-09-14 04:15] VITALS: TEMP 98.6
[2023-09-14 06:41] LABS: BASOPHILS # (AUTO) 0.1 X10^3/uL (0.0-0.1); BASOPHILS % (AUTO) 1.2 % (0.2-1.0); EOSINOPHILS % (AUTO) 0.1 % (0.9-2.9); HEMATOCRIT 35.7 % (36.0-47.0); HEMOGLOBIN 11.9 g/dL (12.0-16.0); LYMPHOCYTES % (AUTO) 21.6 % (21.0-51.0); MEAN CORPUSCULAR HEMOGLOBIN 27.2 pg (27.0-34.0); MEAN CORPUSCULAR HGB CONC 33.3 g/dL (33.0-35.0); MEAN CORPUSCULAR VOLUME 81.6 fL (80.0-100.0); MEAN PLATELET VOLUME 8.5 fL (7.4-11.0); MONOCYTES # (AUTO) 0.6 x10^3/uL (0.3-0.8); MONOCYTES % (AUTO) 6.8 % (0.0-13.0); NEUTROPHILS # (AUTO) 6.6 x10^3/uL (2.2-4.8); NEUTROPHILS % (AUTO) 70.3 % (42.0-75.0); PLATELET COUNT 243 X10^3/uL (150.0-450.0); RED BLOOD COUNT 4.37 X10^6/uL (3.5-5.4); RED CELL DISTRIBUTION WIDTH 14.1 % (11.6-16.5); WHITE BLOOD COUNT 9.4 X10^3/uL (3.6-10.0)
[2023-09-14 06:52] LABS: BLOOD UREA NITROGEN 1 mg/dL (7-18); CALCIUM 8.5 mg/dL (8.5-10.1); CARBON DIOXIDE 16.2 mmol/L (21-32); CHLORIDE 110 mmol/L (98-107); COR NA(FOR HYPERGLY) 141 mmol/L (136-145); CREATININE 0.89 mg/dL (0.55-1.02); GLUCOSE 130 mg/dL (65-99); SODIUM 140 mmol/L (136-145); eGFR NON BLACK RACES > 60 (>60)
[2023-09-14] MEDS: NS + KCL 20 MEQ/L 1,000 ML IV SCH (08:15)
[2023-09-14 10:03] VITALS: O2SAT 99
[2023-09-14 11:02] VITALS: BP 94/53; PULSE 129; RESP 27
[2023-09-14 11:51] LABS: BLOOD UREA NITROGEN 1 mg/dL (7-18); CALCIUM 8.6 mg/dL (8.5-10.1); CARBON DIOXIDE 15.8 mmol/L (21-32); CHLORIDE 110 mmol/L (98-107); COR NA(FOR HYPERGLY) 142 mmol/L (136-145); CREATININE 0.86 mg/dL (0.55-1.02); GLUCOSE 157 mg/dL (65-99); POTASSIUM 3.9 mmol/L (3.5-5.1); SODIUM 141 mmol/L (136-145); eGFR NON BLACK RACES > 60 (>60)
== END 2023-09-14 11:45 | disposition home or self-care (01) | DRG 639 ==
LOC: ER 03:10 → MED/SURG 08:25 → ICU 09-13 14:50
PROVIDERS: ADMIT Internal Medicine; ATTEND Obstetrics & Gynecology Obstetrics
DX: E10.10 Type 1 diabetes mellitus with ketoacidosis without coma; R00.0 Tachycardia, unspecified; E78.2 Mixed hyperlipidemia; R53.1 Weakness; R07.89 Other chest pain; I10 Essential (primary) hypertension; I87.2 Venous insufficiency (chronic) (peripheral); Z79.4 Long term (current) use of insulin; R06.02 Shortness of breath; R42 Dizziness and giddiness

== ENCOUNTER 2024-08-03 18:37 | Observation (INO) ==
--- NOTE | 2024-08-03 20:41 | DR.GENAD ---
HPI Time Seen Time Seen by Provider: 08/03/24 20:40 PCP Primary Care Physician: LOLA Complaint/Symptoms Chief Complaint:: PT STATES SHE HAS HAD BOIL UNDER HER RIGHT ARMPIT AND LEFT THIGH FOR ABOUT TWO WEEKS. SHE WENT AND SEEN FOR THEM AND TOOK A ROUND OF BACTRIM. AFTER FINISHING IT THEY RETURNED BACK. SHE WANTED TO GET THEM SEEN BECAUSE LAST TIME THEY PUT HER IN DKA. Self Treatment fo Chief Complaint: BACTRIM COVID-19 Coronavirus risk:travel/contact w/high risk person: No Has patient experienced Coronavirus symptoms: No Nurses notes reviewed Nurses Notes Review: Yes Source History Provided: Patient Mode of Arrival Mode of Arrival: Ambulatory Timing Onset of Chief Complaint: 07/20/24 PMH PMH Past Medical History: Yes Past Medical History: Diabetes, Dyslipidemia and Hypertension Past Surgical History: Yes Past Surgical History Comment: ABCESS DRAINAGE Family History History of Family Medical Conditions: No Family Medical History: Diabetes Mellitus, Cancer, [place], Heart Failure, Sudden Cardiac and Hypertension Social History Do you use any recreational Drugs:: No Travel Risk Coronavirus risk:travel/contact w/high risk person: No Has patient experienced Coronavirus symptoms: No Infectious screening In the last 2 months have you had wt loss of >10#?: NO Have you had fever, night sweats or hemotysis?: No Have you traveled outside the country in the last 6 months?: No Isolation: Standard PE Vital Signs Vitals: Vital Signs Temperature 99.4 F Temperature 100.4 F Pulse Rate [Left Radial] 87 Pulse Rate 138 Respiratory Rate 18 Respiratory Rate 18 Blood Pressure [Right Arm] 107/59 Blood Pressure 131/68 O2 Sat by Pulse Oximetry 96 ROR Labs Reviewed 08/03/24 23:01 08/03/24 23:01 Laboratory: 08/04/24 01:34 Groin Wound Gram Stain - Final WBC 13.7 X10^3/uL (3.6-10.0) H 08/03/24 23:01 RBC 4.98 X10^6/uL (3.5-5.4) 08/03/24 23:01 Hgb 13.1 g/dL (12.0-16.0) 08/03/24 23:01 Hct 39.3 % (36.0-47.0) 08/03/24 23:01 MCV 78.9 fL (80.0-100.0) L 08/03/24 23: MCH 26.4 pg (27.0-34.0) L 08/03/24 23: MCHC 33.4 g/dL (33.0-35.0) 08/03/24 23: RDW 12.5 % (11.6-16.5) 08/03/24 23: Plt Count 362 X10^3/uL (150.0-450.0) 08/03/24 23: MPV 8.1 fL (7.4-11.0) 08/03/24 23: Neut % (Auto) 74.8 % (42.0-75.0) 08/03/24: Lymph % (Auto) 16.2 % (21.0-51.0) L 08/03/24 23: [place] % (Auto) 7.7 % (0.0-13.0) 08/03/24 23: Eos % (Auto) 0.1 % (0.9-2.9) L 08/03/24 23: Baso % (Auto) 1.2 % (0.2-1.0) H 08/03/24 23:01 Neut # (Auto) 10.2 x10^3/uL (2.2-4.8) H 08/03/24 23: Lymph # (Auto) 2.2 X10^3/uL (1.3-2.9) 08/03/24 23:01 [place] # (Auto) 1.0 x10^3/uL (0.3-0.8) H 08/03/24 23: Eos # (Auto) 0.0 x10^3/uL (0.0-0.2) 08/03/24 23:01 Baso # (Auto) 0.2 X10^3/uL (0.0-0.1) H 08/03/24 23: Absolute Nucleated RBC 0.0 /100WBC 08/03/24 23:01 Sodium 133 mmol/L (136-145) L 08/03/24 23: Corrected Sodium 138 mmol/L (136-145) 08/03/24 23: Potassium 3.8 mmol/L (3.5-5.1) 08/03/24 23:01 Chloride 95 mmol/L (98-107) L 08/03/24 23:01 Carbon Dioxide 17.9 mmol/L (21-32) L 08/03/24 23:01 BUN 4 mg/dL (7-18) L 08/03/24 23:01 Creatinine 0.76 mg/dL (0.55-1.02) 08/03/24 23:01 Est GFR (MDRD) Af Amer > 60 (>60) 08/03/24 23: Est GFR (MDRD) Non-Af > 60 (>60) 08/03/24 23: Glucose 318 mg/dL (65-99) H 08/03/24 23:01 Calcium 9.4 mg/dL (8.5-10.1) 08/03/24 23: Corrected Calcium 10.1 mg/dL (8.5-10.1) 08/03/24 23: Total Bilirubin 0.80 mg/dL (0.2-1.0) 08/03/24 23:01 AST 14 Units/L (15-37) L 08/03/24 23:01 ALT 9 Units/L (12-78) L 08/03/24 23:01 Alkaline Phosphatase 104 Units/L (46-116) 08/03/24 23:01 Total Protein 8.0 g/dL (6.4-8.2) 08/03/24 23:01 Albumin 3.1 g/dL (3.4-5.0) L 08/03/24 23: Globulin 4.9 g/dL (2.5-4.5) H 08/03/24 23:01 Albumin/Globulin Ratio 0.6 Ratio (1.1-2.1) L 08/03/24 23:01 Specimen Type Clean catch urine 08/03/24 00:15 Urine Color Yellow (YELLOW) 08/03/24 00:15 Urine Appearance Slightly hazy (CLEAR) 08/03/24 00:15 Urine pH 5.0 (5.0 - 8.0) 08/03/24 00:15 Ur Specific [place] 1.015 (1.000-1.030) 08/03/24 00:15 Urine Protein 2+ (NEGATIVE) 08/03/24 00:15 Urine Glucose (UA) 4+ (NEGATIVE) 08/03/24 00:15 Urine Ketones 4+ (NEGATIVE) 08/03/24 00:15 Urine Blood Negative (NEGATIVE) 08/03/24 00:15 Urine Nitrite Negative (NEGATIVE) 08/03/24 00:15 Urine Bilirubin Negative (NEGATIVE) 08/03/24 00:15 Urine Urobilinogen Normal (NORMAL) 08/03/24 00:15 Ur Leukocyte Esterase 2+ (NEGATIVE) 08/03/24 00:15 Urine RBC 0-2 /HPF (0-3) 08/03/24 00:15 Urine WBC 5-10 /HPF (0-5) A 08/03/24 00:15 Ur Squamous Epith Cells Many /HPF (NEGATIVE) 08/03/24 00:15 Amorphous Sediment Trace /HPF (NEGATIVE) 08/03/24 00:15 Urine Bacteria Trace /HPF (NEGATIVE) 08/03/24 00:15 Ur Culture Indicated? No/not indicated 08/03/24 00:15 Acetone, Semi-Quant Small (NEGATIVE) H 08/03/24 23:01 Opioid Opioid Risk Tool Age (Jason box if 16-45): Yes History of Preadolescent Sexual Abuse: No Total: 1 Total Score Risk Category: Low Risk Copyright: Antoni HAGAN predicting aberrant behaviors Discharge Plan Diagnosis Discharge Problem: Hyperglycemia, Abscess of axilla, right, Abscess of groin, left, Cellulitis Discharge Plan Patient Disposition: ADMITTED INPATIENT Condition: Stable Discharge Comment: ER IF WORSE. Orders to Discharge Patient Discharge Orders: Discharge (Routine); Ordered 08/03/24 Ordered By: ISAIAS ANTHONY Transfer (Routine); Ordered 08/04/24 Ordered By: ISAIAS ANTHONY
[2024-08-03] MEDS: TORADOL 60 MG VIAL IM ONE (21:43)
[2024-08-03 23:14] LABS: BASOPHILS # (AUTO) 0.2 X10^3/uL (0.0-0.1); BASOPHILS % (AUTO) 1.2 % (0.2-1.0); EOSINOPHILS % (AUTO) 0.1 % (0.9-2.9); HEMATOCRIT 39.3 % (36.0-47.0); HEMOGLOBIN 13.1 g/dL (12.0-16.0); LYMPHOCYTES # (AUTO) 2.2 X10^3/uL (1.3-2.9); LYMPHOCYTES % (AUTO) 16.2 % (21.0-51.0); MEAN CORPUSCULAR HEMOGLOBIN 26.4 pg (27.0-34.0); MEAN CORPUSCULAR HGB CONC 33.4 g/dL (33.0-35.0); MEAN CORPUSCULAR VOLUME 78.9 fL (80.0-100.0); MEAN PLATELET VOLUME 8.1 fL (7.4-11.0); MONOCYTES % (AUTO) 7.7 % (0.0-13.0); NEUTROPHILS # (AUTO) 10.2 x10^3/uL (2.2-4.8); NEUTROPHILS % (AUTO) 74.8 % (42.0-75.0); PLATELET COUNT 362 X10^3/uL (150.0-450.0); RED BLOOD COUNT 4.98 X10^6/uL (3.5-5.4); RED CELL DISTRIBUTION WIDTH 12.5 % (11.6-16.5); WHITE BLOOD COUNT 13.7 X10^3/uL (3.6-10.0)
[2024-08-03 23:22] LABS: ALANINE AMINOTRANSFERASE 9 Units/L (12-78); ALBUMIN 3.1 g/dL (3.4-5.0); ALKALINE PHOSPHATASE 104 Units/L (46-116); ASPARTATE AMINO TRANSFERASE 14 Units/L (15-37); BLOOD UREA NITROGEN 4 mg/dL (7-18); CALCIUM 9.4 mg/dL (8.5-10.1); CARBON DIOXIDE 17.9 mmol/L (21-32); CHLORIDE 95 mmol/L (98-107); COR CA(FOR HYPOALB) 10.1 mg/dL (8.5-10.1); COR NA(FOR HYPERGLY) 138 mmol/L (136-145); CREATININE 0.76 mg/dL (0.55-1.02); GLUCOSE 318 mg/dL (65-99); SODIUM 133 mmol/L (136-145); eGFR NON BLACK RACES > 60 (>60)
[2024-08-03 23:27] LABS: POTASSIUM 3.8 mmol/L (3.5-5.1)
[2024-08-04 00:26] LABS: BILIRUBIN,URINE NEGATIVE (NEGATIVE); BLOOD/HEMOGLOBIN,URINE NEGATIVE (NEGATIVE); GLUCOSE, URINE 4+ (NEGATIVE); KETONES,URINE 4+ (NEGATIVE); LEUKOCYTE ESTERASE ,URINE 2+ (NEGATIVE); NITRITES,URINE NEGATIVE (NEGATIVE); PROTEIN,URINE 2+ (NEGATIVE); UROBILINOGEN,URINE NORMAL (NORMAL)
[2024-08-04] MEDS: NS 1,000 ML IV 1,000 ML IV ONE (00:34)
[2024-08-04] MEDS: CLEOCIN 600 MG IV PREMIX 600 MG/50 ML BAG IV ONE (00:34)
[2024-08-04 00:35] LABS: APPEARANCE,URINE SLIGHTLY HAZY (CLEAR); COLOR,URINE YELLOW (YELLOW); RBC,URINE 0-2 /HPF (0-3); SQUAMOUS EPITHELIAL CELL,UR MANY /HPF (NEGATIVE)
[2024-08-04 00:36] LABS: BACTERIA,URINE TRACE /HPF (NEGATIVE)
[2024-08-04 03:57] VITALS: BMI 25.5
[2024-08-04] MEDS: CLEOCIN 600 MG IV PREMIX 600 MG/50 ML BAG IV SCH (05:17)
[2024-08-04] MEDS: NS 250 ML IV 250 ML IV ONE ×2 (05:18→10:19)
[2024-08-04] MEDS: NovoLIN R (or HumuLIN R) SUBCUT PRN (05:53)
[2024-08-04 06:11] LABS: BASOPHILS # (AUTO) 0.1 X10^3/uL (0.0-0.1); BASOPHILS % (AUTO) 1.3 % (0.2-1.0); EOSINOPHILS % (AUTO) 0.3 % (0.9-2.9); LYMPHOCYTES # (AUTO) 2.3 X10^3/uL (1.3-2.9); LYMPHOCYTES % (AUTO) 24.2 % (21.0-51.0); MEAN CORPUSCULAR HEMOGLOBIN 26.4 pg (27.0-34.0); MEAN CORPUSCULAR HGB CONC 33.3 g/dL (33.0-35.0); MEAN CORPUSCULAR VOLUME 79.2 fL (80.0-100.0); MEAN PLATELET VOLUME 8.5 fL (7.4-11.0); MONOCYTES # (AUTO) 0.8 x10^3/uL (0.3-0.8); MONOCYTES % (AUTO) 8.5 % (0.0-13.0); NEUTROPHILS # (AUTO) 6.4 x10^3/uL (2.2-4.8); NEUTROPHILS % (AUTO) 65.7 % (42.0-75.0); PLATELET COUNT 344 X10^3/uL (150.0-450.0); RED BLOOD COUNT 4.93 X10^6/uL (3.5-5.4); RED CELL DISTRIBUTION WIDTH 12.6 % (11.6-16.5); WHITE BLOOD COUNT 9.7 X10^3/uL (3.6-10.0)
[2024-08-04 06:26] LABS: ALANINE AMINOTRANSFERASE 9 Units/L (12-78); ALBUMIN 2.8 g/dL (3.4-5.0); ALKALINE PHOSPHATASE 94 Units/L (46-116); ASPARTATE AMINO TRANSFERASE 8 Units/L (15-37); BLOOD UREA NITROGEN 5 mg/dL (7-18); CALCIUM 9.1 mg/dL (8.5-10.1); CARBON DIOXIDE 18.4 mmol/L (21-32); CHLORIDE 98 mmol/L (98-107); COR CA(FOR HYPOALB) 10.1 mg/dL (8.5-10.1); COR NA(FOR HYPERGLY) 138 mmol/L (136-145); CREATININE 0.68 mg/dL (0.55-1.02); GLUCOSE 261 mg/dL (65-99); MAGNESIUM 1.7 mg/dL (2.0-2.9); POTASSIUM 3.5 mmol/L (3.5-5.1); SODIUM 134 mmol/L (136-145); TOTAL PROTEIN 7.3 g/dL (6.4-8.2); eGFR NON BLACK RACES > 60 (>60)
[2024-08-04] MEDS ORDERED: CONSULT PHARMACY - POTASSIUM & MAGNESIUM XX SCH (07:00)
[2024-08-04] MEDS: MAG-OX TAB PO SCH (08:10)
[2024-08-04] MEDS: K-DUR TAB 20 MEQ PO SCH (08:10)
[2024-08-04] MEDS: MAGNESIUM SULFATE 1 GRAM/100 mL PREMIX 1 G/100 ML BAG IV SCH (09:39)
[2024-08-04] MEDS: VANCOMYCIN IV *PREMIX 1 G/200 ML BAG 1 G/200 ML PIGGYBACK IV SCH (09:43)
[2024-08-04] MEDS ORDERED: SNACK - Diabetic Appropriate PO SCH (20:00)
[2024-08-04] MEDS: LANTUS SC SCH (21:18)
[2024-08-05 06:19] LABS: BASOPHILS # (AUTO) 0.1 X10^3/uL (0.0-0.1); LYMPHOCYTES # (AUTO) 2.6 X10^3/uL (1.3-2.9); MONOCYTES # (AUTO) 0.9 x10^3/uL (0.3-0.8)
[2024-08-05 06:28] LABS: BASOPHILS % (AUTO) 1.3 % (0.2-1.0); EOSINOPHILS # (AUTO) 0.1 x10^3/uL (0.0-0.2); EOSINOPHILS % (AUTO) 0.6 % (0.9-2.9); HEMATOCRIT 37.4 % (36.0-47.0); HEMOGLOBIN 12.5 g/dL (12.0-16.0); LYMPHOCYTES % (AUTO) 24.3 % (21.0-51.0); MEAN CORPUSCULAR HEMOGLOBIN 26.5 pg (27.0-34.0); MEAN CORPUSCULAR HGB CONC 33.4 g/dL (33.0-35.0); MEAN CORPUSCULAR VOLUME 79.4 fL (80.0-100.0); MONOCYTES % (AUTO) 8.5 % (0.0-13.0); NEUTROPHILS % (AUTO) 65.3 % (42.0-75.0); PLATELET COUNT 274 X10^3/uL (150.0-450.0); RED CELL DISTRIBUTION WIDTH 12.4 % (11.6-16.5)
[2024-08-05 06:42] LABS: ALANINE AMINOTRANSFERASE 8 Units/L (12-78); ALBUMIN 2.5 g/dL (3.4-5.0); ALKALINE PHOSPHATASE 94 Units/L (46-116); ASPARTATE AMINO TRANSFERASE 8 Units/L (15-37); BLOOD UREA NITROGEN 5 mg/dL (7-18); CALCIUM 9.1 mg/dL (8.5-10.1); CARBON DIOXIDE 16.6 mmol/L (21-32); CHLORIDE 100 mmol/L (98-107); COR CA(FOR HYPOALB) 10.3 mg/dL (8.5-10.1); COR NA(FOR HYPERGLY) 137 mmol/L (136-145); CREATININE 0.54 mg/dL (0.55-1.02); GLUCOSE 212 mg/dL (65-99); POTASSIUM 3.7 mmol/L (3.5-5.1); SODIUM 134 mmol/L (136-145); TOTAL PROTEIN 6.7 g/dL (6.4-8.2); eGFR NON BLACK RACES > 60 (>60)
[2024-08-05 06:49] LABS: WHITE BLOOD COUNT 10.7 X10^3/uL (3.6-10.0)
[2024-08-05 06:50] LABS: PLATELET MORPHOLOGY COMMENT NORMAL (NORMAL)
[2024-08-05] MEDS ORDERED: CONSULT PHARMACY - POTASSIUM & MAGNESIUM XX SCH (08:00)
[2024-08-05] MEDS: K-DUR TAB 20 MEQ PO SCH (09:00)
--- NOTE | 2024-08-05 10:54 | PCM.PROG ---
Progress Note Progress Note for Day of Date of Exam: 08/05/24 Subjective Subjective: Patient seen at bedside, no acute events overnight. She is currently admitted for recurrent hidradenitis suppurativa with abscess in groin and right axillary area. Dr. Ventura has been consulted and did I&D yesterday. Cultures are pending. She remains on IV Vanco. She reports feeling better today. Labs/imaging reviewed: -WBC 10.7 hemoglobin 12.5 potassium 3.7 creatinine 0.54 -Cultures pending Plan: Continue IV antibiotics, follow pending cultures. Follow surgery recommendations. Continue wound care and dressing changes as per nursing. Continue pain control. Continue insulin, monitor glucose. Replace electrolytes as per protocol. Monitor a.m. labs and imaging. Past Medical Family Social History Allergies: Allergies No Known Drug Allergies Allergy (Verified 03/07/24 13:12) Vital Signs and I&O's Vital Signs: Vital Signs Temperature 97.4 F Temperature 98.1 F Pulse Rate [Left Radial] 95 Pulse Rate [Left Radial] 111 Respiratory Rate 16 Respiratory Rate 19 Blood Pressure [Right Arm] 116/64 Blood Pressure [Right Arm] 110/58 O2 Sat by Pulse Oximetry 97 O2 Sat by Pulse Oximetry 97 Intake and Output: Intake & Output 08/02/24 08/03/24 08/04/24 08/05/24 23:59 23:59 23:59 23:59 Intake Total 1286 / 1286 76 / 76 Balance 1286 / 1286 76 / 76 Physical Exam Oriented: Normal Throat: Normal Respiratory: Normal Cardiovascular: Normal Palpation: Normal Tenderness: Normal Skin: Tender and Wound (right axilla, left groin ) Musculoskeletal: Normal Psychiatric: Normal Mood Description: Calm Affect: Normal Speech Pattern: Clear and Appropriate Laboratory and Diagnostics 08/05/24 05:15 08/05/24 05:15 Labs: 08/04/24 01:34 Groin Wound Gram Stain - Final Laboratory WBC 10.7 X10^3/uL (3.6-10.0) H 08/05/24 05:15 RBC 4.70 X10^6/uL (3.5-5.4) 08/05/24 05:15 Hgb 12.5 g/dL (12.0-16.0) 08/05/24 05:15 Hct 37.4 % (36.0-47.0) 08/05/24 05:15 MCV 79.4 fL (80.0-100.0) L 08/05/24 05:15 MCH 26.5 pg (27.0-34.0) L 08/05/24 05:15 MCHC 33.4 g/dL (33.0-35.0) 08/05/24 05:15 RDW 12.4 % (11.6-16.5) 08/05/24 05:15 Plt Count 274 X10^3/uL (150.0-450.0) 08/05/24 05:15 Plt Count Comment Adequate (ADEQUATE) 08/05/24 05:15 MPV 9.0 fL (7.4-11.0) 08/05/24 05:15 Neut % (Auto) 65.3 % (42.0-75.0) 08/05/24 05:15 Lymph % (Auto) 24.3 % (21.0-51.0) 08/05/24 05:15 [place] % (Auto) 8.5 % (0.0-13.0) 08/05/24 05:15 Eos % (Auto) 0.6 % (0.9-2.9) L 08/05/24 05:15 Baso % (Auto) 1.3 % (0.2-1.0) H 08/05/24 05:15 Neut # (Auto) 7.0 x10^3/uL (2.2-4.8) H 08/05/24 05:15 Lymph # (Auto) 2.6 X10^3/uL (1.3-2.9) 08/05/24 05:15 [place] # (Auto) 0.9 x10^3/uL (0.3-0.8) H 08/05/24 05:15 Eos # (Auto) 0.1 x10^3/uL (0.0-0.2) 08/05/24 05:15 Baso # (Auto) 0.1 X10^3/uL (0.0-0.1) 08/05/24 05:15 Absolute Nucleated RBC 0.1 /100WBC 08/05/24 05:15 Plt Clumps, EDTA Few 08/05/24 05:15 Plt Morphology Comment Normal (NORMAL) 08/05/24 05:15 RBC Morphology Normal (NORMAL) 08/05/24 05:15 Sodium 134 mmol/L (136-145) L 08/05/24 05:15 Corrected Sodium 137 mmol/L (136-145) 08/05/24 05:15 Potassium 3.7 mmol/L (3.5-5.1) 08/05/24 05:15 Chloride 100 mmol/L (98-107) 08/05/24 05:15 Carbon Dioxide 16.6 mmol/L (21-32) L 08/05/24 05:15 BUN 5 mg/dL (7-18) L 08/05/24 05:15 Creatinine 0.54 mg/dL (0.55-1.02) L 08/05/24 05:15 Est GFR (MDRD) Af Amer > 60 (>60) 08/05/24 05:15 Est GFR (MDRD) Non-Af > 60 (>60) 08/05/24 05:15 Glucose 212 mg/dL (65-99) H 08/05/24 05:15 POC Glucose (mg/dL) 194 mg/dL (65-99) H 08/05/24 05:07 Calcium 9.1 mg/dL (8.5-10.1) 08/05/24 05:15 Corrected Calcium 10.3 mg/dL (8.5-10.1) H 08/05/24 05:15 Magnesium 2.0 mg/dL (2.0-2.9) 08/05/24 05:15 Total Bilirubin 0.40 mg/dL (0.2-1.0) 08/05/24 05:15 AST 8 Units/L (15-37) L 08/05/24 05:15 ALT 8 Units/L (12-78) L 08/05/24 05:15 Alkaline Phosphatase 94 Units/L (46-116) 08/05/24 05:15 Total Protein 6.7 g/dL (6.4-8.2) 08/05/24 05:15 Albumin 2.5 g/dL (3.4-5.0) L 08/05/24 05:15 Globulin 4.2 g/dL (2.5-4.5) 08/05/24 05:15 Albumin/Globulin Ratio 0.6 Ratio (1.1-2.1) L 08/05/24 05:15 Specimen Type Clean catch urine 08/03/24 00:15 Urine Color Yellow (YELLOW) 08/03/24 00:15 Urine Appearance Slightly hazy (CLEAR) 08/03/24 00:15 Urine pH 5.0 (5.0 - 8.0) 08/03/24 00:15 Ur Specific [place] 1.015 (1.000-1.030) 08/03/24 00:15 Urine Protein 2+ (NEGATIVE) 08/03/24 00:15 Urine Glucose (UA) 4+ (NEGATIVE) 08/03/24 00:15 Urine Ketones 4+ (NEGATIVE) 08/03/24 00:15 Urine Blood Negative (NEGATIVE) 08/03/24 00:15 Urine Nitrite Negative (NEGATIVE) 08/03/24 00:15 Urine Bilirubin Negative (NEGATIVE) 08/03/24 00:15 Urine Urobilinogen Normal (NORMAL) 08/03/24 00:15 Ur Leukocyte Esterase 2+ (NEGATIVE) 08/03/24 00:15 Urine RBC 0-2 /HPF (0-3) 08/03/24 00:15 Urine WBC 5-10 /HPF (0-5) A 08/03/24 00:15 Ur Squamous Epith Cells Many /HPF (NEGATIVE) 08/03/24 00:15 Amorphous Sediment Trace /HPF (NEGATIVE) 08/03/24 00:15 Urine Bacteria Trace /HPF (NEGATIVE) 08/03/24 00:15 Ur Culture Indicated? No/not indicated 08/03/24 00:15 Acetone, Semi-Quant Small (NEGATIVE) H 08/03/24 23:01 Plan (1) Abscess of axilla, right: Status: Acute (2) Abscess of groin, left: Status: Acute (3) Hyperglycemia: Status: Acute (4) Uncontrolled type 1 diabetes mellitus: Status: Chronic Qualifiers: Glycemic state: with hyperglycemia Qualified Code(s): E10.65 - Type 1 diabetes mellitus with hyperglycemia (5) Hidradenitis suppurativa: Status: Chronic
[2024-08-05] MEDS: PHARMACY COMMENT IV NR (20:26)
[2024-08-05 20:50] LABS: CREATININE 0.58 mg/dL (0.55-1.02); VANCOMYCIN,TROUGH 2.5 ug/mL (15-20)
[2024-08-06 04:51] LABS: BASOPHILS % (AUTO) 0.6 % (0.2-1.0); EOSINOPHILS # (AUTO) 0.1 x10^3/uL (0.0-0.2); HEMATOCRIT 37.5 % (36.0-47.0); HEMOGLOBIN 12.6 g/dL (12.0-16.0); LYMPHOCYTES # (AUTO) 2.5 X10^3/uL (1.3-2.9); LYMPHOCYTES % (AUTO) 37.8 % (21.0-51.0); MEAN CORPUSCULAR HEMOGLOBIN 26.4 pg (27.0-34.0); MEAN CORPUSCULAR HGB CONC 33.7 g/dL (33.0-35.0); MEAN CORPUSCULAR VOLUME 78.3 fL (80.0-100.0); MONOCYTES # (AUTO) 0.6 x10^3/uL (0.3-0.8); MONOCYTES % (AUTO) 8.4 % (0.0-13.0); NEUTROPHILS # (AUTO) 3.5 x10^3/uL (2.2-4.8); NEUTROPHILS % (AUTO) 52.2 % (42.0-75.0); PLATELET COUNT 369 X10^3/uL (150.0-450.0); RED BLOOD COUNT 4.79 X10^6/uL (3.5-5.4); RED CELL DISTRIBUTION WIDTH 12.5 % (11.6-16.5); WHITE BLOOD COUNT 6.7 X10^3/uL (3.6-10.0)
[2024-08-06 05:07] LABS: ALANINE AMINOTRANSFERASE 7 Units/L (12-78); ALBUMIN 2.5 g/dL (3.4-5.0); ALKALINE PHOSPHATASE 90 Units/L (46-116); ASPARTATE AMINO TRANSFERASE 7 Units/L (15-37); BLOOD UREA NITROGEN 9 mg/dL (7-18); CALCIUM 9.4 mg/dL (8.5-10.1); CARBON DIOXIDE 22.5 mmol/L (21-32); CHLORIDE 101 mmol/L (98-107); COR CA(FOR HYPOALB) 10.6 mg/dL (8.5-10.1); COR NA(FOR HYPERGLY) 140 mmol/L (136-145); CREATININE 0.48 mg/dL (0.55-1.02); GLUCOSE 210 mg/dL (65-99); POTASSIUM 3.6 mmol/L (3.5-5.1); SODIUM 137 mmol/L (136-145); TOTAL PROTEIN 6.7 g/dL (6.4-8.2); eGFR NON BLACK RACES > 60 (>60)
[2024-08-06] MEDS: MILK OF MAGNESIA ONE (08:01)
[2024-08-06] MEDS: MILK OF MAGNESIA PO SCH (08:01)
--- NOTE | 2024-08-06 10:39 | PCM.PROG ---
Progress Note Progress Note for Day of Date of Exam: 08/06/24 Subjective Subjective: Patient seen at bedside, no acute events overnight. She is doing well. She is currently admitted for recurrent hidradenitis suppurativa with abscess in groin and right axillary area. Dr. Ventura has been consulted and did I&D on Wednesday. Cultures are pending. She remains on IV Vanco. Labs/imaging reviewed: -WBC 6.7 hemoglobin 12.6 potassium 3.6 creatinine 0.48 -Cultures Gm + cocci Plan: Continue IV Vancomycin, follow pending cultures. Follow surgery recommendations. Continue wound care and dressing changes as per nursing. Continue pain control. Continue insulin, monitor glucose. Replace electrolytes as per protocol. Monitor a.m. labs and imaging. Past Medical Family Social History Allergies: Allergies No Known Drug Allergies Allergy (Verified 03/07/24 13:12) Vital Signs and I&O's Vital Signs: Vital Signs Temperature 97.8 F Temperature 98.5 F Pulse Rate [Left Radial] 115 Pulse Rate [Left Radial] 91 Respiratory Rate 21 Respiratory Rate 20 Blood Pressure [Right Arm] 114/60 Blood Pressure [Right Arm] 114/62 O2 Sat by Pulse Oximetry 97 O2 Sat by Pulse Oximetry 97 Intake and Output: Intake & Output 08/03/24 08/04/24 08/05/24 08/06/24 23:59 23:59 23:59 23:59 Intake Total 1286 / 1286 814 / 814 Balance 1286 / 1286 814 / 814 Physical Exam Oriented: Normal Throat: Normal Respiratory: Normal Cardiovascular: Normal Auscultation: Bowel Sounds: Normal Palpation: Normal Tenderness: Normal Skin: Tender and Wound (right axilla, left groin - dressing intact) Musculoskeletal: Normal Psychiatric: Normal Mood Description: Calm Affect: Normal Speech Pattern: Clear and Appropriate Laboratory and Diagnostics 08/06/24 04:22 08/06/24 04:22 Labs: 08/04/24 11:49 Groin Wound Culture - Preliminary 08/04/24 01:34 Groin Wound Gram Stain - Final 08/04/24 01:34 Groin Wound Culture - Preliminary Laboratory WBC 6.7 X10^3/uL (3.6-10.0) 08/06/24 04:22 RBC 4.79 X10^6/uL (3.5-5.4) 08/06/24 04:22 Hgb 12.6 g/dL (12.0-16.0) 08/06/24 04:22 Hct 37.5 % (36.0-47.0) 08/06/24 04:22 MCV 78.3 fL (80.0-100.0) L 08/06/24 04:22 MCH 26.4 pg (27.0-34.0) L 08/06/24 04:22 MCHC 33.7 g/dL (33.0-35.0) 08/06/24 04:22 RDW 12.5 % (11.6-16.5) 08/06/24 04:22 Plt Count 369 X10^3/uL (150.0-450.0) 08/06/24 04:22 Plt Count Comment Adequate (ADEQUATE) 08/05/24 05:15 MPV 8.0 fL (7.4-11.0) 08/06/24 04:22 Neut % (Auto) 52.2 % (42.0-75.0) 08/06/24 04:22 Lymph % (Auto) 37.8 % (21.0-51.0) 08/06/24 04:22 [place] % (Auto) 8.4 % (0.0-13.0) 08/06/24 04:22 Eos % (Auto) 1.0 % (0.9-2.9) 08/06/24 04:22 Baso % (Auto) 0.6 % (0.2-1.0) 08/06/24 04:22 Neut # (Auto) 3.5 x10^3/uL (2.2-4.8) 08/06/24 04:22 Lymph # (Auto) 2.5 X10^3/uL (1.3-2.9) 08/06/24 04:22 [place] # (Auto) 0.6 x10^3/uL (0.3-0.8) 08/06/24 04:22 Eos # (Auto) 0.1 x10^3/uL (0.0-0.2) 08/06/24 04:22 Baso # (Auto) 0.0 X10^3/uL (0.0-0.1) 08/06/24 04:22 Absolute Nucleated RBC 0.0 /100WBC 08/06/24 04:22 Plt Clumps, EDTA Few 08/05/24 05:15 Plt Morphology Comment Normal (NORMAL) 08/05/24 05:15 RBC Morphology Normal (NORMAL) 08/05/24 05:15 Sodium 137 mmol/L (136-145) 08/06/24 04:22 Corrected Sodium 140 mmol/L (136-145) 08/06/24 04:22 Potassium 3.6 mmol/L (3.5-5.1) 08/06/24 04:22 Chloride 101 mmol/L (98-107) 08/06/24 04:22 Carbon Dioxide 22.5 mmol/L (21-32) 08/06/24 04:22 BUN 9 mg/dL (7-18) 08/06/24 04:22 Creatinine 0.48 mg/dL (0.55-1.02) L 08/06/24 04:22 Est GFR (MDRD) Af Amer > 60 (>60) 08/06/24 04:22 Est GFR (MDRD) Non-Af > 60 (>60) 08/06/24 04:22 Glucose 210 mg/dL (65-99) H 08/06/24 04:22 POC Glucose (mg/dL) 210 mg/dL (65-99) H 08/06/24 05:08 Calcium 9.4 mg/dL (8.5-10.1) 08/06/24 04:22 Corrected Calcium 10.6 mg/dL (8.5-10.1) H 08/06/24 04:22 Magnesium 2.0 mg/dL (2.0-2.9) 08/05/24 05:15 Total Bilirubin 0.30 mg/dL (0.2-1.0) 08/06/24 04:22 AST 7 Units/L (15-37) L 08/06/24 04:22 ALT 7 Units/L (12-78) L 08/06/24 04:22 Alkaline Phosphatase 90 Units/L (46-116) 08/06/24 04:22 Total Protein 6.7 g/dL (6.4-8.2) 08/06/24 04:22 Albumin 2.5 g/dL (3.4-5.0) L 08/06/24 04:22 Globulin 4.2 g/dL (2.5-4.5) 08/06/24 04:22 Albumin/Globulin Ratio 0.6 Ratio (1.1-2.1) L 08/06/24 04:22 Specimen Type Clean catch urine 08/03/24 00:15 Urine Color Yellow (YELLOW) 08/03/24 00:15 Urine Appearance Slightly hazy (CLEAR) 08/03/24 00:15 Urine pH 5.0 (5.0 - 8.0) 08/03/24 00:15 Ur Specific [place] 1.015 (1.000-1.030) 08/03/24 00:15 Urine Protein 2+ (NEGATIVE) 08/03/24 00:15 Urine Glucose (UA) 4+ (NEGATIVE) 08/03/24 00:15 Urine Ketones 4+ (NEGATIVE) 08/03/24 00:15 Urine Blood Negative (NEGATIVE) 08/03/24 00:15 Urine Nitrite Negative (NEGATIVE) 08/03/24 00:15 Urine Bilirubin Negative (NEGATIVE) 08/03/24 00:15 Urine Urobilinogen Normal (NORMAL) 08/03/24 00:15 Ur Leukocyte Esterase 2+ (NEGATIVE) 08/03/24 00:15 Urine RBC 0-2 /HPF (0-3) 08/03/24 00:15 Urine WBC 5-10 /HPF (0-5) A 08/03/24 00:15 Ur Squamous Epith Cells Many /HPF (NEGATIVE) 08/03/24 00:15 Amorphous Sediment Trace /HPF (NEGATIVE) 08/03/24 00:15 Urine Bacteria Trace /HPF (NEGATIVE) 08/03/24 00:15 Ur Culture Indicated? No/not indicated 08/03/24 00:15 Vancomycin Trough 2.5 ug/mL (15-20) L 08/05/24 20:23 Acetone, Semi-Quant Small (NEGATIVE) H 08/03/24 23:01 Plan (1) Abscess of axilla, right: Status: Acute (2) Abscess of groin, left: Status: Acute (3) Hyperglycemia: Status: Acute (4) Uncontrolled type 1 diabetes mellitus: Status: Chronic Qualifiers: Glycemic state: with hyperglycemia Qualified Code(s): E10.65 - Type 1 diabetes mellitus with hyperglycemia (5) Hidradenitis suppurativa: Status: Chronic
[2024-08-06] MEDS: DILAUDID INJ IVP ONE (19:25)
[2024-08-06] MEDS: COLACE CAP 100 MG PO SCH (20:26)
[2024-08-06] MEDS: NS 250 ML IV 250 ML IV ONE (20:53)
[2024-08-07 04:49] LABS: BASOPHILS # (AUTO) 0.1 X10^3/uL (0.0-0.1); BASOPHILS % (AUTO) 0.9 % (0.2-1.0); EOSINOPHILS # (AUTO) 0.1 x10^3/uL (0.0-0.2); HEMATOCRIT 37.8 % (36.0-47.0); HEMOGLOBIN 12.7 g/dL (12.0-16.0); LYMPHOCYTES # (AUTO) 2.7 X10^3/uL (1.3-2.9); LYMPHOCYTES % (AUTO) 41.9 % (21.0-51.0); MEAN CORPUSCULAR HEMOGLOBIN 26.4 pg (27.0-34.0); MEAN CORPUSCULAR HGB CONC 33.6 g/dL (33.0-35.0); MEAN CORPUSCULAR VOLUME 78.5 fL (80.0-100.0); MONOCYTES # (AUTO) 0.5 x10^3/uL (0.3-0.8); MONOCYTES % (AUTO) 7.2 % (0.0-13.0); NEUTROPHILS # (AUTO) 3.2 x10^3/uL (2.2-4.8); PLATELET COUNT 373 X10^3/uL (150.0-450.0); RED BLOOD COUNT 4.82 X10^6/uL (3.5-5.4); RED CELL DISTRIBUTION WIDTH 12.3 % (11.6-16.5); WHITE BLOOD COUNT 6.5 X10^3/uL (3.6-10.0)
[2024-08-07 05:00] LABS: ALANINE AMINOTRANSFERASE 7 Units/L (12-78); ALBUMIN 2.4 g/dL (3.4-5.0); ALKALINE PHOSPHATASE 89 Units/L (46-116); ASPARTATE AMINO TRANSFERASE 6 Units/L (15-37); BLOOD UREA NITROGEN 9 mg/dL (7-18); CALCIUM 9.1 mg/dL (8.5-10.1); CARBON DIOXIDE 26.7 mmol/L (21-32); CHLORIDE 101 mmol/L (98-107); COR CA(FOR HYPOALB) 10.4 mg/dL (8.5-10.1); COR NA(FOR HYPERGLY) 141 mmol/L (136-145); CREATININE 0.54 mg/dL (0.55-1.02); GLUCOSE 176 mg/dL (65-99); POTASSIUM 3.3 mmol/L (3.5-5.1); SODIUM 139 mmol/L (136-145); TOTAL PROTEIN 6.6 g/dL (6.4-8.2); eGFR NON BLACK RACES > 60 (>60)
[2024-08-07 05:09] VITALS: O2SAT 98
[2024-08-07] MEDS ORDERED: CONSULT PHARMACY - POTASSIUM & MAGNESIUM XX SCH (08:00)
[2024-08-07] MEDS: K-DUR TAB 20 MEQ PO SCH (08:04)
[2024-08-07 08:51] VITALS: BP 113/71; PULSE 110; RESP 18; TEMP 97.5
[2024-08-07] MEDS: NS 250 ML IV 250 ML IV ONE (09:32)
== END 2024-08-07 11:25 | disposition home or self-care (01) ==
LOC: MED/SURG 18:37 → ER 18:37 → MED/SURG 08-04 03:19
PROVIDERS: ADMIT Family Medicine; ATTEND Obstetrics & Gynecology Obstetrics
DX: E78.5 Hyperlipidemia, unspecified; Z16.19 Resistance to other specified beta lactam antibiotics; L73.2 Hidradenitis suppurativa; E87.1 Hypo-osmolality and hyponatremia; Z79.4 Long term (current) use of insulin; E83.42 Hypomagnesemia; Z16.11 Resistance to penicillins; L02.214 Cutaneous abscess of groin; B95.7 Other staphylococcus as the cause of diseases classified elsewhere; Z16.12 Extended spectrum beta lactamase (ESBL) resistance; I10 Essential (primary) hypertension; E10.65 Type 1 diabetes mellitus with hyperglycemia; Z16.29 Resistance to other single specified antibiotic; L02.411 Cutaneous abscess of right axilla